=== PATIENT | female | born 1940 | race Caucasian/White ===

== ENCOUNTER 2017-05-21 06:25 | Day surgery (SDC) | payer MEDICARE ==
[~2017-05-21] VITALS: Ht 162.6 cm; Wt 77.1 kg
--- NOTE | ~2017-05-21 | OP ---
PATIENT NAME: DORIE CHRISTINE MEDICAL RECORD: [id number] :38 LOCATION:D.OPS ADMISSION DATE: SURGEON: JOSE MABRY MD DATE OF OPERATION: 05/21/2017 PRINCIPAL DIAGNOSIS: History of anorectal polyp. POSTOPERATIVE DIAGNOSIS: History of anorectal polyp with no evidence of regrowth of the anorectal polyp. PROCEDURES: 1. Total colonoscopy to cecum. 2. Cold endoscopic biopsies of the anorectal scar and then retreatment of the area with the argon plasma senior procurement manager. SURGEON: Jose Mabry MD RECOVERY OPERATOR HELPER: None. BLOOD LOSS: Minimal. ANESTHESIA: General. COMPLICATIONS: None. The risks, possible complications, and alternatives to the procedure were explained to the patient. She elects to proceed. OPERATIVE COURSE: The patient was conveyed to the operating room electively on 05/21/2017. General anesthesia was induced by the anesthesia staff. The patient was placed in the Warner position. A digital rectal examination was performed. A colonoscope was inserted through the anus. It was easily advanced to the cecum. The prep was adequate. Upon withdrawal, I irrigated and aspirated extensively. I dragged the folds. The pullback was greater than a 16-minute pullback. I noted no new or persistent colorectal polyps. Scar in the anorectal area was easily identifiable. This was biopsied multiply utilizing the cold endoscopic biopsy forceps. I then retreated the area with the argon-plasma senior procurement manager utilizing the right colon setting in the forced mode. I then un-retroflexed the scope and removed it under direct vision. I will see the patient in my office in 2 to 3 weeks. It is very likely that I will return the patient's endoscopic care back over to Dr. Gregg at that time. TRANSINT:[id number] Voice Confirmation ID: [id number] DOCUMENT ID: [id number] JOSE MABRY MD at 0938 CC: MARIMAR GREGG MD and ABDIAS SOLO [id number] DICTATION DATE: 07/01/17 1024 NIPPING MACHINE OPERATOR: 07/01/17 1500 [facility] 05/21/17 [place] [address]
[~2017-05-21 06:25] MED LIST: ALTACE10 MG PO; CRESTOR20 MG PO; DYAZIDE 37.5/251 CAP PO; LOSARTAN POTASS25 MG PO; PROTONIX40 MG PO; SINGULAIR10 MG PO
[2017-05-21 08:21] LABS: HEMATOCRIT 43.2 % (36.0-48.0); HEMOGLOBIN 14.3 g/dL (12-16); MCH 29.5 pg (26.0-34.0); MCHC 33.1 g/dL (31.0-37.0); MCV 89.3 fL (80.0-100.0); MEAN PLATELET VOLUME 10.6 fL (7.4-10.4); RBC 4.84 10x6/uL (4.00-5.40); RDW 13.4 % (11.5-14.5); WBC 4.3 10x3/uL (4.8-10.8)
[2017-05-21] MEDS ORDERED: NASONEX NASAL S17 GM NS (08:21)
[2017-05-21 08:22] VITALS: BP 122/70; Ht 162.6 cm; Wt 77.1 kg
[2017-05-21] MEDS ORDERED: ZANTAC300 MG PO (08:22)
[2017-05-21 08:29] LABS: ANION GAP 13.9 mmol/L (8-16); CALCIUM 9.9 mg/dL (8.5-10.1); CARBON DIOXIDE 28.3 mmol/L (21.0-32.0); CREATININE - SERUM 1.5 mg/dL (0.6-1.3); POTASSIUM - SERUM 3.2 mmol/L (3.5-5.1)
== END 2017-05-21 11:45 | disposition home or self-care (01) ==
LOC: D.OPS 06:25 → D.PAN 08:55 → D.OPS 09:00 → D.PAN 09:00 → D.OPS 11:45
PROVIDERS: Anesthesiology
DX: Z87.19 Personal history of other diseases of the digestive system (principal); I10 Essential (primary) hypertension; Z01.812 Encounter for preprocedural laboratory examination